=== PATIENT | male | born 2000 | race Caucasian/White ===

== ENCOUNTER 2023-10-10 09:11 | Emergency (ER) | payer OTHER, SELFPAY ==
[2023-10-10 09:50] VITALS: BP 100/67; PULSE 60; RESP 16; TEMP 36.6; O2SAT 97; BMI 20.4
--- NOTE | 2023-10-10 10:13 | ED.GENADULT ---
HPI - General Adult General Chief complaint: General Medical Stated complaint: Pain when using bathroom Time Seen by Provider: 10/10/23 10:13 Source: patient and other (Partner) Mode of arrival: ambulatory Limitations: no limitations History of Present Illness HPI narrative: 23-year-old male presents with white discharge from the tip of the penis, urinary frequency, urgency, hesitancy, and feeling of incomplete voiding ongoing for the past few days worsening. Patient does not know if he has been exposed to an STD but would like to be tested. Patient denies fevers, chills, chest pain, shortness breath, nausea, vomiting, diarrhea, rectal pain, abdominal pain, headache, vision changes, dizziness and weakness. history of STDs in the past unsure which Related Data Previous Rx's Medication Instructions Recorded doxycycline hyclate 100 mg capsule 100 mg PO BID 10 days #20 caps 10/10/23 metronidazole 500 mg tablet 500 mg PO BID 7 days #14 tabs 10/10/23 Allergies Allergy/AdvReac Type Severity Reaction Status Date / Time amoxicillin Allergy Hives Verified 10/10/23 09:49 Penicillins Allergy Hives Verified 10/10/23 09:49 Review of Systems Review of Systems: Yes all other systems are reviewed and are negative PMFSH Past Medical History Attestation statement: The following information was validated with the patient. Source: old records reviewed and nursing notes reviewed Social History Social History Advance Directives: No Advance Directives Information Provided: No Physical Exam ED Vital Signs: Vital Signs - 24 hr 10/10/23 09:50 Temperature 98 F Pulse Rate 60 Respiratory Rate 16 Blood Pressure 100/67 Pulse Oximetry 97 Oxygen Delivery Method Room Air BMI result Body Mass Index 20.4 Vital signs stable Appearance: Alert.? Oriented X3.? No acute distress.? Head: Normocephalic, atraumatic, no step-offs or deformities Eyes: Pupils equal, round and reactive to light.? Neck: Normal inspection.? Neck supple.? CVS: Normal heart rate and rhythm.? Pulses normal.? Respiratory: No respiratory distress.? Breath sounds normal.? Abdomen: Soft and nontender.? Skin: Skin warm and dry.? Normal skin color.? Normal skin turgor.? Extremities: No lower extremity edema.? No calf ttp. 5/5 strength to bilateral upper and lower extremities Sensitive exam: Normal external exam, no discharge. It no pain to palpation. No lesions lumps or masses Neuro: Oriented X 3.? No motor deficit.? No sensory deficit. CN 2-12 intact Course Reevaluation(s) Reevaluation #1: Patient agrees to prophylactic treatment for gonorrhea, chlamydia and trichomonas. 500mg IM ceftriaxone has been given here and scripts for doxycycline 100 mg po BID X 7 days and metronidazole 500 mg po BID X 7 days have been given to the patient. Educated on safe sex practices, full pannel STD testing and speaking to? partners on possible STD. Educated patient on diagnosis and treatment plan, answered all question, patient verbalizes understanding. At this time patient will be discharged home, advised to return with new or worsening symptoms. Educated on worrisome signs and symptoms and when to return. At this time I feel comfortable discharge home. Time: 10:22 Medical Decision Making Medical Decision Making [facility] Narrative: 23-year-old male presents with urinary symptoms possibly exposed to STD unsure. Physical examination benign History and physical exam concerning for STD versus UTI versus cystitis. Unlikely pyelo, torsion, obstructing uropathy, kidney stone. Unlikely metabolic derangements or systemic illness Plan at this time urine. Differential Diagnosis Differential Diagnoses: The differential diagnosis associated with the presentation includes History and physical exam concerning for STD versus UTI versus cystitis. Unlikely pyelo, torsion, obstructing uropathy, kidney stone. Unlikely metabolic derangements or systemic illness Admission/Observation Consideration of admission/observation: Escalation of care including admission/observation considered Unlikely Lab Data [facility] Lab Attestation statement: I reviewed the patient's lab results. Tests considered The following testing was considered but not selected: No testicular pain or swelling. No indication for testicular ultrasound with Doppler. Critical Care Time Critical Care Time Critical Care Time: Yes Total Critical Care Time: 35 Attestation: I attest to this time spent taking care of the patient, obtaining history, physical, tx w/ IM atbx Discharge Plan Discharge Clinical Impression: Concern about STD in male without diagnosis, Dysuria Patient Disposition: Home, Self-Care Instructions: Dysuria (ED) Additional Instructions: Take your medications as prescribed. If you were prescribed antibiotics today, it is important that you take your medication to their entirety, do not skip any doses, do not finish them early. Follow-up with your primary care provider this week. Return to the emergency department with new or worsening symptoms. Such as fevers, chills, chest pain, shortness of breath, nausea, vomiting, dizziness, headache, vision changes, lethargy In case of emergency call 911 You were treated here today with ceftriaxone, a medication that treats gonorrhea. I have sent to your pharmacy Metronidazole that covers trichomonas, and Doxycycline which covers for chlamydia. Please be reevaluated by a healthcare provider after completing your antibiotics. Do not stop them early, do not skip any doses. Until you are reevaluated by a health care provider please practice safe sex as disucussed. Please also have a conversation with your sexual partners.? I also advise you to obtain full panel STD testing to test for other STDs including HIV, Hepatitis B & C and syphilis with your PCP or a local clinic. Prescriptions: New doxycycline hyclate 100 mg capsule 100 mg PO BID 10 Days Qty: 20 0RF metronidazole 500 mg tablet 500 mg PO BID 7 Days Qty: 14 0RF Referrals: Physician,None [Primary Care Provider] - 2 days
[2023-10-10] MEDS: Doxycycline Monohydrate 100 MG CAPSULE PO (11:11)
[2023-10-10] MEDS: cefTRIAXone sodium 500 MG VIAL IM (11:11)
[2023-10-10] MEDS: metroNIDAZOLE 500 MG TABLET PO (11:11)
[2023-10-10 11:32] LABS: Appearance Urine Clear; Color Urine Dark Yellow; Glucose Urine UA Negative (Negative); Leukocyte Esterase Urine Moderate (2+) (Negative); Nitrite Urine Negative (Negative); PH 6.5 (5.0-9.0); Specific Gravity - Urine 1.025 (1.005-1.025); UMIC TRIGGER UACC YES; Urine Blood Trace (Negative); Urine Ketones Trace mg/dL (Negative); Urine Protein Trace mg/dL (Neg-Trace)
[2023-10-10 11:37] LABS: Bacteria Urine None Seen (None Seen); Hyaline Casts Urine 0-2 /LPF (0-2); Squamous Epithelial Cell Urine 0-2 /HPF (0-2); UACC Culture Trigger YES; WBC Urine >50 /HPF (0-5)
[2023-10-10 12:17] LABS: CT PCR NOT DETECTED (Not Detect.); NG PCR NOT DETECTED (Not Detect.)
== END 2023-10-10 11:27 | disposition home or self-care (01) ==
PROVIDERS: Physician Assistant; Emergency Provider Emergency Medicine
DX: R36.9 Urethral discharge, unspecified (principal); R35.0 Frequency of micturition; R30.0 Dysuria; Z20.2 Contact with and (suspected) exposure to infections with a predominantly sexual mode of transmission
CPT/HCPCS: 0353U; 81001; 87086; 96372; 99283; 99284; J0696